=== PATIENT | female | born 1965 | race Caucasian/White ===

== ENCOUNTER 2019-02-22 06:21 | Day surgery (SDC) | payer BC ==
[2019-02-22] MEDS ORDERED: Propofol 200 MG/20 ML SDV ONE (06:22)
[2019-02-22] MEDS ORDERED: Lidocaine 1% 4 ML ONE (06:22)
[2019-02-22] MEDS ORDERED: Midazolam 1 MG/ML 2 ML SDV ONE (06:22)
[2019-02-22] MEDS ORDERED: fentaNYL 100 MCG/2 ML SDV ONE ×2 (06:22→07:51)
[2019-02-22] MEDS ORDERED: Sodium Chloride 0.9% 10 ML Syringe FLUSH PRN (06:42)
[2019-02-22] MEDS ORDERED: Lidocaine 1%/Sod Bicarbonate in NS 8.4% 1 ML Syringe IDERM PRN (06:42)
--- NOTE | 2019-02-22 06:46 | PCM.PREANE ---
Preanesthetic Assessment - Procedure Proposed Procedure: closed reduction left wrist vs open - Anesthesia/Transfusion/Family Hx Anesthesia History: Prior Anesthesia Without Reaction Type of Anesthesia Reaction: Other (see below) (emotional after) Family History of Anesthesia Reaction: No Transfusion History: No Prior Transfusion(s) - Review of Systems General: No Symptoms Pulmonary: No Symptoms Cardiovascular: No Symptoms Gastrointestinal: No Symptoms Neurological: No Symptoms - Physical Assessment NPO Status Date: 02/21/19 NPO Status Time: 22:50 Vital Signs: 117/70 67 99% 16 Height: 5 ft 8 in Weight: 60.8 kg ASA Class: 1 Mental Status: Alert & Oriented x3 Airway Class: Mallampati = 1 Dentition: Reports: Normal Dentition Thyro-Mental Finger Breadths: 3 Mouth Opening Finger Breadths: 3 ROM/Head Extension: Full Lungs: Clear to Auscultation, Normal Respiratory Effort Cardiovascular: Regular Rate, Regular Rhythm - Lab Values: Laboratory Last Values MRSA (PCR) Negative 02/21/19 10:44 - Allergies Allergies/Adverse Reactions: Allergies Allergy/AdvReac Type Severity Reaction Status Date / Time Egg Derived Allergy Nausea and Verified 02/21/19 15:40 Vomiting - Blood Blood Available: No - Acknowledgements Anesthesia Type Planned: MAC Pt an Appropriate Candidate for the Planned Anesthesia: Yes Alternatives and Risks of Anesthesia Discussed w Pt/Guardian: Yes Pt/Guardian Understands and Agrees with Anesthesia Plan: Yes PreAnesthesia Questionnaire HEENT History: Reports: Impaired Vision Cardiovascular History: Reports: None Respiratory History: Reports: None Gastrointestinal History: Reports: None Genitourinary History: Reports: None COVERING AND LINING SUPERVISOR History: Reports: None Musculoskeletal History: Reports: None Neurological History: Reports: None Psychiatric History: Reports: None Endocrine/Metabolic History: Reports: None Hematologic History: Reports: None Immunologic History: Reports: None Oncologic (Cancer) History: Reports: None Dermatologic History: Reports: None - Past Surgical History Head Surgeries/Procedures: Reports: None HEENT Surgical History: Reports: None Cardiovascular Surgical History: Reports: None Respiratory Surgical History: Reports: None GI Surgical History: Reports: Colonoscopy Female Surgical History: Reports: Other (See Below) Other Female Surgeries/Procedures: BLADDER SLING PROCEDURE Endocrine Surgical History: Reports: None Neurological Surgical History: Reports: None Musculoskeletal Surgical History: Reports: None Oncologic Surgical History: Reports: None Dermatological Surgical History: Reports: None - SUBSTANCE USE Smoking Status *Q: Never Smoker Tobacco Use Within Last Twelve Months: No Second Hand Smoke Exposure: No Days Per Week of Alcohol Use: 6 (wine or beer or manish) Number of Drinks Per Day: 2 Total Drinks Per Week: 12 Recreational Drug Use History: No - HOME MEDS Home Medications: Home Meds Acetaminophen/HYDROcodone [Cardwell 325-5 MG] 1 - 2 tab PO Q6H PRN #30 tablet 02/22 [Rx] - CURRENT (IN HOUSE) MEDS Current Meds: Current Medications Discontinued Medications Fentanyl (Sublimaze) Confirm Administered Dose 100 mcg .ROUTE .STK-MED ONE Stop: 02/22/19 06:23 Lidocaine HCl (Xylocaine-Mpf 1%) Confirm Administered Dose 4 mls @ as directed .ROUTE .STK-MED ONE Stop: 02/22/19 06:23 Midazolam HCl (Versed 1 Mg/Ml) Confirm Administered Dose 2 mg .ROUTE .STK-MED ONE Stop: 02/22/19 06:23 Propofol (Diprivan 20 Ml) Confirm Administered Dose 200 mg .ROUTE .STK-MED ONE Stop: 02/22/19 06:23
[2019-02-22] MEDS ORDERED: Ondansetron 4 MG/2 ML SDV ONE (06:55)
[2019-02-22] MEDS ORDERED: Dexamethasone 4 MG/ML 5 ML MDV ONE (06:55)
[2019-02-22] MEDS: Lactated Ringers 1,000 ML IV SCH ×2 (07:17→08:25)
[2019-02-22] MEDS ORDERED: Ketorolac 30 MG/ML SDV ONE (07:36)
[2019-02-22] MEDS ORDERED: HYDROmorphone 0.5 MG/0.5 ML Syringe ONE (07:44)
--- NOTE | 2019-02-22 07:56 | PCM.POSTAN ---
POST ANESTHESIA ASSESSMENT - MENTAL STATUS Mental Status: Alert, Oriented - VITAL SIGNS Vital Signs: Last Vital Signs Temp 97.4 F 02/22/19 06:30 Pulse 67 02/22/19 06:30 Resp 16 02/22/19 06:30 BP 117/70 02/22/19 06:30 Pulse Ox 99 02/22/19 06:30 98% 84 11 97.4 105/79 - RESPIRATORY Respiratory Status: Respiratory Rate WNL, Airway Patent, O2 Saturation Stable - CARDIOVASCULAR CV Status: Pulse Rate WNL, Blood Pressure Stable - GASTROINTESTINAL GI Status: No Symptoms - PAIN Pain Score: 8 (medicated) - POST OP HYDRATION Hydration Status: Adequate & Stable
[2019-02-22] MEDS ORDERED: Ondansetron 4 MG/2 ML SDV IVPUSH PRN (07:57)
[2019-02-22] MEDS ORDERED: HYDROmorphone 0.5 MG/0.5 ML Syringe IVPUSH PRN (07:57)
[2019-02-22] MEDS: fentaNYL 100 MCG/2 ML SDV IVPUSH PRN ×2 (08:06→08:22)
[2019-02-22] MEDS ORDERED: Acetaminophen/HYDROcodone 325-5 MG Tab PO PRN (08:26)
--- NOTE | 2019-02-22 09:47 | PCM48HPAN ---
Post Anesthesia Note - EVALUATION WITHIN 48HRS OF ANESTHETIC Vital Signs in Normal Range: Yes Patient Participated in Evaluation: Yes Respiratory Function Stable: Yes Airway Patent: Yes Cardiovascular Function Stable: Yes Hydration Status Stable: Yes Pain Control Satisfactory: Yes Nausea and Vomiting Control Satisfactory: Yes Mental Status Recovered: Yes (rests) Vital Signs: Last Vital Signs Temp 97.4 F 02/22/19 07:49 Pulse 60 02/22/19 09:30 Resp 20 02/22/19 09:30 BP 97/57 L 02/22/19 09:30 Pulse Ox 97 02/22/19 09:30
--- NOTE | 2019-02-23 07:38 | CR ---
Left wrist: Six fluoroscopic spot views were obtained of the left wrist. Study obtained utilizing C-arm device. Findings: Study shows reduction of distal radial fracture. Small avulsed ulnar styloid process fracture noted. Final 2 films shows fiberglass cast in place. Fluoroscopy time given as 10.8 seconds. Impression: 1. Procedural study as noted above. Diagnostic code #2
--- NOTE | 2019-02-27 07:00 | PCM.OPNOTE ---
- General Post-Op/Procedure Note Date of Surgery/Procedure: 02/22/19 Operative Procedure(s): closed reduction with short arm casting of left distal radius and ulnar fracture Pre Op Diagnosis: left distal radius and ulna fracture Post-Op Diagnosis: Same Anesthesia Technique: Local, MAC Primary Surgeon: Patrick Oconnor Anesthesia Provider: Norris Hamilton Information Systems Manager: Galina Barnard in mLs: 0 Complications: None Condition: Good
--- NOTE | 2019-02-27 12:32 | OR ---
DATE OF OPERATION: 02/22/2019 SURGEON: Patrick Oconnor MD OPERATION PERFORMED: Closed reduction with short-arm casting of left distal radius and ulnar fracture. PREOPERATIVE DIAGNOSIS: Left distal radius and ulnar styloid fracture. POSTOPERATIVE DIAGNOSIS: Left distal radius and ulnar styloid fracture. ANESTHESIA: Local MAC. ANESTHESIA PROVIDER: Norris Hamilton CRNA. CONSUMER MARKETING SPECIALIST: Galina Barnard PA-C. ESTIMATED BLOOD LOSS: Not applicable. COMPLICATIONS: None. CONDITION: Stable. DESCRIPTION OF PROCEDURE: The patient was identified in the preoperative holding area where proper site was marked and identified by the surgeon. The patient was taken back to the operating theater, where after adequate anesthesia, a time-out was performed. Once this was completed, AP and lateral showed the displaced distal radius fracture. A closed reduction maneuver was then done with 3-point molding and was found to have anatomic reduction of the radial height as well as radial inclination and volar tilt. At this time, under-cast padding was applied as well as a cotton roll and first-layer cast was applied. Three-point molding was then done again and was found to have continued anatomic reduction. Final layers of the cast were applied, and the patient was sent to the PACU in stable condition. MMGAMAL /[id number]
== END 2019-02-22 10:20 | disposition home or self-care (01) ==
LOC: JD.SDS 06:21
PROVIDERS: ATTEND Orthopaedic Surgery
DX: S52.502A Unspecified fracture of the lower end of left radius, initial encounter for closed fracture (principal); S52.612A Displaced fracture of left ulna styloid process, initial encounter for closed fracture; W18.39XA Other fall on same level, initial encounter
CPT/HCPCS: 25605; 76000; 87641; J1100; J1170; J1885; J2001; J2250; J2405; J2704; J3010; J7120; 01820